=== PATIENT | female | born 1950 | race Caucasian/White ===

== ENCOUNTER 2023-10-05 13:29 | Observation (INO) | payer MEDICARE, BC ==
[2023-10-05] MEDS: Ondansetron 4 MG/2 ML SDV IVPUSH ONE (13:57)
[2023-10-05] MEDS ORDERED: Sodium Chloride 0.9% 10 ML Syringe FLUSH PRN (14:13)
[2023-10-05] MEDS: Dextrose 5% in Water 250 ML IV SCH (14:18)
[2023-10-05 14:24] LABS: HEMATOCRIT 39.9 % (37.0-47.0); HEMOGLOBIN 12.8 g/dL (11.5-16.5); MEAN CORPUSCULAR HGB CONC 32.1 g/dL (31.0-35.0); MEAN PLATELET VOLUME 9.1 fL (6.0-10.0); RED BLOOD CELL COUNT 4.41 M/uL (3.80-5.80); RED CELL DISTRIBUTION WIDTH 13.6 % (11.0-16.0)
[2023-10-05 14:40] LABS: A/G RATIO 0.9 (0.8-2.0); ALBUMIN 3.6 g/dL (3.4-5.0); ANION GAP 15.3 mmol/L (5.0-15.0); BILIRUBIN TOTAL 0.5 mg/dL (0.0-1.0); BUN/CREATININE RATIO 15.7 (6-25); CALCIUM 9.9 mg/dL (8.5-10.1); CARBON DIOXIDE,CO2 22.2 mmol/L (21.0-32.0); CREATININE 1.4 mg/dL (0.55-1.02); EST CRCL DRUG DOSING (CG) 29.6 mL/min; MAGNESIUM 1.4 mg/dL (1.8-2.4); PHOSPHORUS 2.2 mg/dL (2.5-4.9); POTASSIUM,K 3.5 mmol/L (3.5-5.1); PROTEIN TOTAL,TP 7.6 g/dL (6.4-8.2); TROPONIN I HIGH SENSITIVITY 12.6 pg/ml (<=60.4)
[2023-10-05 14:43] LABS: HEMOGLOBIN A1C 6.5 % (< 5.7)
[2023-10-05] MEDS ORDERED: Non-Formulary Medication 1 Each (Meclizine [Antivert] 25 MG Tab.Chew) PO PRN (16:26)
[2023-10-05] MEDS ORDERED: Sodium Phosphate 15 mMole/5 ML SDV IV SCH (17:00)
[2023-10-05] MEDS: Sodium Phosphate 45 MMOLE in Sodium Chloride 0.9% 250 ML IV ONE (18:53)
[2023-10-05] MEDS: Non-Formulary Medication 1 Each (Insulin Detemir [Levemir] 100 UNIT/ML Pen) SQ SCH (22:56)
[2023-10-06] MEDS ORDERED: Aspirin 81 MG Tab.EC PO SCH (08:00)
[2023-10-06] MEDS ORDERED: Non-Formulary Medication 1 Each (Aspirin [Halfprin] 81 MG Tab.Ec) PO SCH (08:00)
[2023-10-06] MEDS: Non-Formulary Medication 1 Each (Insulin Detemir [Levemir] 100 UNIT/ML Pen) SUBCUT SCH (08:32)
[2023-10-06] MEDS: Non-Formulary Medication 1 Each (Levothyroxine [Synthroid] 88 MCG Tablet) PO SCH (08:33)
[2023-10-06] MEDS: Non-Formulary Medication 1 Each (Losartan [Cozaar] 100 MG Tablet) PO SCH (08:34)
[2023-10-06 10:30] LABS: ANION GAP 11.1 mmol/L (5.0-15.0); BUN/CREATININE RATIO 14.8 (6-25); CALCIUM 9.2 mg/dL (8.5-10.1); CREATININE 1.22 mg/dL (0.55-1.02); EST CRCL DRUG DOSING (CG) 33.97 mL/min; MAGNESIUM 1.8 mg/dL (1.8-2.4); PHOSPHORUS 3.1 mg/dL (2.5-4.9); POTASSIUM,K 4.1 mmol/L (3.5-5.1)
== END 2023-10-06 13:07 | disposition home or self-care (01) ==
LOC: LB.ED 13:29 → LB.MS 16:19
PROVIDERS: ADMIT Surgery; ATTEND Surgery
DX: E83.42 Hypomagnesemia (principal); E11.649 Type 2 diabetes mellitus with hypoglycemia without coma; E83.39 Other disorders of phosphorus metabolism; Z79.82 Long term (current) use of aspirin; Z79.4 Long term (current) use of insulin; Z79.890 Hormone replacement therapy; Z79.899 Other long term (current) drug therapy
CPT/HCPCS: 36415; 71045; 80048; 80053; 82947; 83036; 83735; 84100; 84443; 84484; 85027; 85379; 93005; 93010; 93246; 96361; 96365; 96366; 96367; 96375; 99222; 99239; 99285-25; G0378; J2405; J3475; J7050